=== PATIENT | female | born 1980 | race Caucasian/White ===

== ENCOUNTER 2017-09-09 08:31 | Day surgery (SDC) | payer OTHER ==
[~2017-09-09 08:31] MED LIST: Lidocaine 1%/Sod Bicarbonate in NS 8.4% 1 ML Syringe PRN; Sodium Chloride 0.9% 10 ML Syringe FLUSH PRN
[2017-09-09] MEDS: Lactated Ringers 1,000 ML IV SCH ×2 (08:55→11:30)
[2017-09-09] MEDS ORDERED: Scopolamine 1 MG Transdermal Patch TRDERM SCH (09:00)
--- NOTE | 2017-09-09 09:03 | PCM.PREANE ---
Preanesthetic Assessment - Anesthesia/Transfusion/Family Hx Anesthesia History: Prior Anesthesia Reaction Type of Anesthesia Reaction: Excessive Nausea/Vomiting Family History of Anesthesia Reaction: No Transfusion History: No Prior Transfusion(s) - Review of Systems General: No Symptoms Pulmonary: No Symptoms Cardiovascular: No Symptoms Gastrointestinal: No Symptoms Neurological: No Symptoms Other: Reports: None - Physical Assessment NPO Status Date: 09/08/16 NPO Status Time: 23:00 Pulse: 64 O2 Sat by Pulse Oximetry: 98 Respiratory Rate: 16 Blood Pressure: 118/52 Temperature: 36.6 C Weight: 103 kg ASA Class: 1 Mental Status: Alert & Oriented x3 Dentition: Reports: Normal Dentition Thyro-Mental Finger Breadths: 3 Mouth Opening Finger Breadths: 3 ROM/Head Extension: Full Lungs: Clear to Auscultation, Normal Respiratory Effort Cardiovascular: Regular Rate, Regular Rhythm - Lab Values: Laboratory Last Values WBC 7.42 K/mm3 (3.98-10.04) 09/05/17 15:10 RBC 4.50 M/mm3 (3.98-5.22) 09/05/17 15:10 Hgb 12.7 gm/L (11.2-15.7) 09/05/17 15:10 Hct 39.3 % (34.1-44.9) 09/05/17 15:10 MCV 87.3 fl (79.4-94.8) 09/05/17 15:10 MCH 28.2 pg (25.6-32.2) 09/05/17 15:10 MCHC 32.3 g/dl (32.2-35.5) 09/05/17 15:10 RDW Std Deviation 42.4 fL (36.4-46.3) 09/05/17 15:10 Plt Count 323 K/mm3 (182-369) 09/05/17 15:10 MPV 9.5 fl (9.4-12.3) 09/05/17 15:10 Neut % (Auto) 64.5 % (34.0-71.1) 09/05/17 15:10 Lymph % (Auto) 28.4 % (19.3-51.7) 09/05/17 15:10 [place] % (Auto) 5.3 % (4.7-12.5) 09/05/17 15:10 Eos % (Auto) 1.2 (0.7-5.8) 09/05/17 15:10 Baso % (Auto) 0.3 % (0.1-1.2) 09/05/17 15:10 Neut # (Auto) 4.79 K/mm3 (1.56-6.13) 09/05/17 15:10 Lymph # (Auto) 2.11 K/mm3 (1.18-3.74) 09/05/17 15:10 [place] # (Auto) 0.39 K/mm3 (0.24-0.36) H 09/05/17 15:10 Eos # (Auto) 0.09 K/mm3 (0.04-0.36) 09/05/17 15:10 Baso # (Auto) 0.02 K/mm3 (0.01-0.08) 09/05/17 15:10 Urine Color Yellow (Yellow) 09/05/17 14:55 Urine Appearance Clear (Clear) 09/05/17 14:55 Urine pH 6.5 (5.0-8.0) 09/05/17 14:55 Ur Specific [place] 1.020 (1.005-1.030) 09/05/17 14:55 Urine Protein Negative (Negative) 09/05/17 14:55 Urine Glucose (UA) Negative (Negative) 09/05/17 14:55 Urine Ketones Negative (Negative) 09/05/17 14:55 Urine Occult Blood Negative (Negative) 09/05/17 14:55 Urine Nitrite Negative (Negative) 09/05/17 14:55 Urine Bilirubin Negative (Negative) 09/05/17 14:55 Urine Urobilinogen 0.2 (0.2-1.0) 09/05/17 14:55 Ur Leukocyte Esterase Negative (Negative) 09/05/17 14:55 Urine HCG, Qual Negative (NEGATIVE) 09/09/17 08:40 - Allergies Allergies/Adverse Reactions: Allergies Allergy/AdvReac Type Severity Reaction Status Date / Time No Known Allergies Allergy Verified 09/08/17 14:27 - Acknowledgements Anesthesia Type Planned: General Anesthesia Pt an Appropriate Candidate for the Planned Anesthesia: Yes Alternatives and Risks of Anesthesia Discussed w Pt/Guardian: Yes Pt/Guardian Understands and Agrees with Anesthesia Plan: Yes PreAnesthesia Questionnaire HEENT History: Reports: Impaired Vision, Other (See Below) Other HEENT History: wears glasses, contacts Cardiovascular History: Reports: None Respiratory History: Reports: None Genitourinary History: Reports: None 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) Other OB/BYN History: low serum progesterone, menorrhagia, Neurological History: Reports: None Psychiatric History: Reports: None Endocrine/Metabolic History: Reports: None Hematologic History: Reports: None Immunologic History: Reports: None Oncologic (Cancer) History: Reports: None Dermatologic History: Reports: None - Past Surgical History Head Surgeries/Procedures: Reports: None Cardiovascular Surgical History: Reports: None Respiratory Surgical History: Reports: None GI Surgical History: Reports: Colonoscopy Female Surgical History: Reports: None Male Surgical History: Reports: None Endocrine Surgical History: Reports: None Neurological Surgical History: Reports: None Musculoskeletal Surgical History: Reports: Other (See Below) Other Musculoskeletal Surgeries/Procedures:: knee surgery Dermatological Surgical History: Reports: None - SUBSTANCE USE Smoking Status *Q: Never Smoker Recreational Drug Use History: No - HOME MEDS Home Medications: Home Meds Progesterone,Micronized [Crinone] 1 dose TOP ASDIRECTED 09/08/17 [History] - CURRENT (IN HOUSE) MEDS Current Meds: Current Medications Lactated Ringer's (Ringers, Lactated) 1,000 mls @ 125 mls/hr IV ASDIRECTED RIAN Stop: 09/09/17 23:00 Lidocaine/Sodium Bicarbonate (Buffered Lidocaine 1% In Ns 8.4%) 0.25 ml .XX ONETIME PRN PRN Reason: Prior to IV Start Stop: 09/09/17 18:00 Sodium Chloride (Saline Flush) 10 ml FLUSH ASDIRECTED PRN PRN Reason: Keep Vein Open Stop: 09/09/17 18:00
[2017-09-09] MEDS ORDERED: Propofol 200 MG/20 ML SDV ONE (09:19)
[2017-09-09] MEDS ORDERED: Lactated Ringers 1,000 ML ONE (09:19)
[2017-09-09] MEDS ORDERED: Ketorolac 30 MG/ML SDV ONE (09:19)
[2017-09-09] MEDS ORDERED: fentaNYL 250 MCG/5 ML SDV ONE (09:19)
[2017-09-09] MEDS ORDERED: Midazolam 1 MG/ML 2 ML SDV ONE (09:19)
[2017-09-09] MEDS ORDERED: Ondansetron 4 MG/2 ML SDV ONE (09:19)
[2017-09-09] MEDS ORDERED: Lidocaine 1% 4 ML ONE (09:19)
[2017-09-09] MEDS ORDERED: ceFAZolin 1 GM Vial ONE (09:19)
[2017-09-09] MEDS ORDERED: Dexamethasone 4 MG/ML SDV ONE (09:19)
[2017-09-09] MEDS ORDERED: Ketamine 500 mg/10 ML MDV ONE (09:50)
[2017-09-09] MEDS ORDERED: Ondansetron 4 MG/2 ML SDV IVPUSH PRN (10:58)
[2017-09-09] MEDS ORDERED: Acetaminophen/oxyCODONE 325-5 MG Tab PO PRN (10:58)
--- NOTE | 2017-09-09 11:07 | PCM.OPNOTE ---
- General Post-Op/Procedure Note Date of Surgery/Procedure: 09/09/17 Operative Procedure(s): Hysteroscopy, D&C, NovaSure endometrial ablation Findings: Uterus sounded to 9.5 cm with cervix 3 cm and endometrial cavity 6.5 cm. The width of the uterus was 3.5 cm. The duration ablation was 53 seconds. Power was 125. An exam showed uterus to be upper limits normal size. No adnexal abnormalities were noted. Cervix appeared to be multiparous. Pre Op Diagnosis: 1. Menorrhagia. 2. Uterine polyp Post-Op Diagnosis: Same Anesthesia Technique: MAC Primary Surgeon: Joe Marshall Secondary Surgeon: Gomez Wilson Anesthesia Provider: Paul Resendez Reason Assistant Professor Of Communication Was Necessary: Retraction and assistance, patient safety and quality of care Role of Assistant Professor Of Communication: Retraction Output, Urine Amount: 900 EBL in mLs: 10 Complications: None Condition: Good Free Text/Narrative:: Surgeon duration: 18 minutes Procedure: Patient was instructed as to procedure, its risks, benefits, limitations and follow-up and had signed a consent for surgery. The patient is taken the operative placed in a supine position on the operating table. She received 2 g of Ancef preoperatively for infection prophylaxis and had sequential compression stockings in place for DVT prophylaxis. Patient was given general anesthesia and an LMA was placed for ventilation. She is placed in a dorsal lithotomy position and prepped and draped in usual fashion. An exam under anesthesia was performed. Findings as described above. A weighted speculum was placed in the vagina. Cervix is visualized. It was grasped anteriorly with a single-tooth tenaculum. Uterus was then sounded to a depth of 9-1/2 cm. The cervix was dilated to allow passage of a 5 mm 30 rigid hysteroscope. This was placed without problem and normal saline was used as a distending medium. The endometrial cavity was visualized. Findings as described above. Decision was made to proceed with polypectomy. Polyp forceps was introduced and polyps were removed. After this is performed a D&C was performed. Moderate amount tissue was obtained. Minimal bleeding was encountered. Hysteroscope was then placed back into the endometrial cavity. Blood was flushed out and the findings were consistent relatively normal-appearing endometrial cavity. At this point the scope was removed. The vagina was cleared of old blood, NovaSure endometrial ablation was then performed. The cervix was dilated to allow placement of the NovaSure endometrial apparatus. Uterus had sounded to 9.5 cm and a uterine endometrial cavity was 6.5 cm with cervix being a length of 3 cm.. The NovaSure device was set to 6.5 centimeters as this was maximal setting. The image cavities foundry 3.5 cm in width. Uterine cavity integrity check was then performed and was successful. The endometrial cavity was then ablated. Energy was 125. The ablation took approximately 53 seconds The array was collapsed and the apparatus was removed. Hysteroscope was then placed back into the endometrial cavity. Blood was flushed out and the findings were consistent with a cauterized endometrial cavity. At this point the scope was removed. The vagina was cleared of old blood , the cervix was released and the weighted speculum was removed. Patient was returned to supine position and awakened from general anesthesia. She tolerated the procedure well and operating room in good condition.
--- NOTE | 2017-09-09 11:11 | PCM48HPAN ---
Post Anesthesia Note - EVALUATION WITHIN 48HRS OF ANESTHETIC Vital Signs in Normal Range: Yes Patient Participated in Evaluation: Yes Respiratory Function Stable: Yes Airway Patent: Yes Cardiovascular Function Stable: Yes Hydration Status Stable: Yes Pain Control Satisfactory: Yes Nausea and Vomiting Control Satisfactory: Yes Mental Status Recovered: Yes
== END 2017-09-09 13:45 | disposition home or self-care (01) ==
LOC: JD.SDS 08:31
PROVIDERS: ATTEND Obstetrics & Gynecology
DX: N85.8 Other specified noninflammatory disorders of uterus (principal); R79.89 Other specified abnormal findings of blood chemistry
CPT/HCPCS: 36415; 58563; 81003; 81025; 85025; A9270; J0690; J1100; J1885; J2250; J2405; J3010; J7120; 00952; J2001; J2704

== ENCOUNTER 2020-03-04 09:13 | Day surgery (SDC) | payer OTHER ==
[~2020-03-04 09:13] MED LIST changes: +Lactated Ringers 1,000 ML IV SCH; +Lidocaine 1%/Sod Bicarbonate in NS 8.4% 1 ML Syringe IDERM PRN; -Lidocaine 1%/Sod Bicarbonate in NS 8.4% 1 ML Syringe PRN
[2020-03-04] MEDS ORDERED: Scopolamine 1.5 MG Transdermal Patch TOP ONE (10:13)
--- NOTE | 2020-03-04 10:18 | PCM.PREANE ---
Preanesthetic Assessment - Procedure Proposed Procedure: Screening colonoscopy and EGD - Anesthesia/Transfusion/Family Hx Anesthesia History: Prior Anesthesia Reaction (NAUSEA) Family History of Anesthesia Reaction: No Transfusion History: No Prior Transfusion(s) - Review of Systems General: No Symptoms Pulmonary: No Symptoms Cardiovascular: No Symptoms Gastrointestinal: No Symptoms Neurological: No Symptoms Other: Reports: None - Physical Assessment NPO Status Date: 03/03/20 NPO Status Time: 00:00 Height: 1.68 m Weight: 100.97 kg ASA Class: 2 Mental Status: Alert & Oriented x3 Airway Class: Mallampati = 1 Dentition: Reports: Normal Dentition Thyro-Mental Finger Breadths: 3 Mouth Opening Finger Breadths: 3 ROM/Head Extension: Full Lungs: Clear to Auscultation, Normal Respiratory Effort Cardiovascular: Regular Rate, Regular Rhythm - Lab Values: Laboratory Last Values Urine HCG, Qual Negative (NEGATIVE) 03/04/20 09:10 - Allergies Allergies/Adverse Reactions: Allergies Allergy/AdvReac Type Severity Reaction Status Date / Time No Known Allergies Allergy Verified 03/03/20 14:05 - Blood Blood Available: No Product(s) Available: None - Anesthesia Plan Pre-Op Medication Ordered: None - Acknowledgements Anesthesia Type Planned: MAC Pt an Appropriate Candidate for the Planned Anesthesia: Yes Alternatives and Risks of Anesthesia Discussed w Pt/Guardian: Yes Pt/Guardian Understands and Agrees with Anesthesia Plan: Yes PreAnesthesia Questionnaire HEENT History: Reports: Impaired Vision, Other (See Below) Other HEENT History: wears glasses, contacts Cardiovascular History: Reports: None Respiratory History: Reports: None Gastrointestinal History: Reports: None Genitourinary History: Reports: None 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, Other (See Below) Other OB/BYN History: low serum progesterone, menorrhagia, Musculoskeletal History: Reports: None Neurological History: Reports: None Psychiatric History: Reports: None Endocrine/Metabolic History: Reports: None Hematologic History: Reports: None Immunologic History: Reports: None Oncologic (Cancer) History: Reports: None Dermatologic History: Reports: None - Past Surgical History Head Surgeries/Procedures: Reports: None Cardiovascular Surgical History: Reports: None Respiratory Surgical History: Reports: None GI Surgical History: Reports: Colonoscopy Female Surgical History: Reports: Section Male Surgical History: Reports: None Endocrine Surgical History: Reports: None Neurological Surgical History: Reports: None Musculoskeletal Surgical History: Reports: Other (See Below) Other Musculoskeletal Surgeries/Procedures:: knee surgery Oncologic Surgical History: Reports: None Dermatological Surgical History: Reports: None - SUBSTANCE USE Smoking Status *Q: Never Smoker Tobacco Use Within Last Twelve Months: No Second Hand Smoke Exposure: No Days Per Week of Alcohol Use: 0 Number of Drinks Per Day: 0 Total Drinks Per Week: 0 Recreational Drug Use History: No - HOME MEDS Home Medications: Home Meds Progesterone, Micronized [Crinone] 1 dose TOP DAILY 09/08/17 [History] - CURRENT (IN HOUSE) MEDS Current Meds: Current Medications Lactated Ringer's (Ringers, Lactated) 1,000 mls @ 125 mls/hr IV ASDIRECTED RIAN Stop: 03/04/20 23:00 Lidocaine/Sodium Bicarbonate (Buffered Lidocaine 1% In Ns 8.4%) 0.25 ml IDERM ONETIME PRN PRN Reason: Prior to IV Start Stop: 03/04/20 18:00 Sodium Chloride (Saline Flush) 10 ml FLUSH ASDIRECTED PRN PRN Reason: Keep Vein Open Stop: 03/04/20 18:00
[2020-03-04] MEDS ORDERED: fentaNYL 100 MCG/2 ML SDV ONE (11:17)
[2020-03-04] MEDS ORDERED: Propofol 200 MG/20 ML SDV ONE ×2 (11:17→11:58)
[2020-03-04] MEDS ORDERED: Lidocaine 1% 6 ML ONE (11:18)
[2020-03-04] MEDS ORDERED: Lactated Ringers 1,000 ML ONE (12:02)
--- NOTE | 2020-03-04 12:42 | PCM48HPAN ---
Post Anesthesia Note - EVALUATION WITHIN 48HRS OF ANESTHETIC Vital Signs in Normal Range: Yes Patient Participated in Evaluation: Yes Respiratory Function Stable: Yes Airway Patent: Yes Cardiovascular Function Stable: Yes Hydration Status Stable: Yes Pain Control Satisfactory: Yes Nausea and Vomiting Control Satisfactory: Yes Mental Status Recovered: Yes Vital Signs: Last Vital Signs Temp 97.5 F 03/04/20 12:30 Pulse 72 03/04/20 12:30 Resp 16 03/04/20 12:30 BP 109/73 03/04/20 12:30 Pulse Ox 98 03/04/20 12:30
[2020-03-04] MEDS ORDERED: Ondansetron 8 MG in Sodium Chloride 0.9% 50 ML IV PRN (13:40)
--- NOTE | 2020-03-04 13:55 | PCM.PRNOTE ---
- Free Text/Narrative Note: Date: 03/04/2020 Procedure: upper and lower endoscopy Endoscopist: Reagan Segovia MD Indications: family history of HNPCC/ GI malignancy Findings: normal upper endoscopy. >1cm flat area of atypical mucosa near the descending-sigmoid area with adjacent small polyp. Additional pedunculated polyp in sigmoid. Small rectal polyp. Detailed Report: The patient was taken to the endoscopy suite and placed in left lateral decubitus position. Time out was performed and monitored anesthesia care initiated. A bite block was placed and the endoscope was inserted into the mouth. The scope was easily advanced to the duodenum. The mucosa appeared normal and the ampulla of Vater was visualized. The pylorus, antrum, body and fundus all appeared normal. A small sliding hiatal hernia was noted. The Z-line appeared normal without evidence of gross esophagitis or metaplasia. Next, colonoscopy was performed. The anus appeared normal and digital exam was unremarkable. The colonoscope was lubricated and inserted anally. The scope was advanced to the cecum with relative ease. Prep was good. The appendiceal orifice and ileocecal valve were visualized. The scope was slowly withdrawn and mucosal surfaces carefully inspected. A flat, roughly 2 x 1 cm area of abnormal appearing mucosa was noted about 60 cm from the anal verge. This was biopsied with forceps and then cauterized. An adjacent small polyp was managed in similar fashion. A pedunculated polyp in the distal sigmoid measuring less than one cm was removed using the hot snare. A small hyperplastic-appearing polyp in the proximal rectum was biopsied with forceps and fulgurated. No pathology was noted on retroflexion of the scope within the rectum. Air was evacuated prior to withdrawal of the scope. The patient tolerated the procedure well.
== END 2020-03-04 14:34 | disposition home or self-care (01) ==
LOC: JD.SDS 09:13
PROVIDERS: ATTEND Surgery
DX: Z12.11 Encounter for screening for malignant neoplasm of colon (principal); K63.5 Polyp of colon; K62.1 Rectal polyp; K44.9 Diaphragmatic hernia without obstruction or gangrene; Z14.8 Genetic carrier of other disease; Z98.890 Other specified postprocedural states; Z80.0 Family history of malignant neoplasm of digestive organs
CPT/HCPCS: 43235; 45380; 45385; 81025; A9270; J2001; J2704; J3010; J7120; 00813